=== PATIENT | female | born 1980 | race Caucasian/White ===

== ENCOUNTER 2024-04-18 08:49 | Emergency (ER) | payer OTHER, SELFPAY ==
[2024-04-18 09:08] VITALS: BP 141/113; PULSE 81; RESP 16; TEMP 37; O2SAT 100
--- NOTE | 2024-04-18 10:19 | ED.GENADULT ---
HPI - General Adult General Chief complaint: Neck Pain/Injury Stated complaint: neck pain, left arm pain Time Seen by Provider: 04/18/24 09:52 History of Present Illness HPI narrative: Patient is a 43-year-old female who presents to the emergency department this morning with multiple chronic complaints. Patient states that she has had neck pain for the past few months and when she lived in [place] a few months ago in January had an MRI of her neck which revealed severe cervical spondylosis. Patient was seen at an outside facility here a week ago and had repeat CT scans which showed similar findings. At that time, patient was referred to a neurosurgeon which wanted to try steroid shots 1st before surgery, however, patient declined a steroid shots as they would not put her under. Patient was administered some Ativan which the patient stated did not do anything for her anxiety. Patient states that she has PTSD and the injections only precipitate that. She was discharged and was not provided with appropriate follow-up since she refused the steroid shots. Patient is now frustrated and she said while she was at this outside hospital they were checking her blood work every 2 hours since she was septic and accidentally injured 1 of her left upper extremity nerves in the AC fossa. Patient states that since then she has been having this sharp shooting nerve pain and is requesting medication for her nerve pain. Patient is allergic to gabapentin. She is also requesting a neurosurgeon/field artillery operations specialist referral. She denies any recent trauma or falls since she was discharged from outside hospital. Patient has no additional concerns or symptoms at this time. Related Data Allergies Allergy/AdvReac Type Severity Reaction Status Date / Time codeine Allergy Rash Verified 04/18/24 09:17 gabapentin Allergy Rash Verified 04/18/24 09:17 Sulfa (Sulfonamide Allergy Anaphylaxis Verified 04/18/24 09:17 Antibiotics) Review of Systems Review of Systems: All systems are reviewed and are negative unless stated otherwise in the HPI. Exam Narrative: General: Alert, awake, afebrile, in no acute distress. HEENT: PERRL, no rhinorrhea, no post nasal drip, oropharynx clear. Neck: Tenderness to palpation over the paraspinal cervical muscles. Cardiovascular: Regular rate and rhythm, no murmurs, rubs or gallops, no peripheral edema. Respiratory: Clear to auscultation bilaterally, no tachypnea, no wheezing, no rhonchi, no rubs, no respiratory distress. Abdomen: Soft, nontender, nondistended, no rebound, no guarding, no peritoneal signs. Musculoskeletal: No joint swelling or deformity, normal muscle tone. Skin: No rashes or petechia, no signs of infection. Neurological: Alert and oriented to person, place, and time. Follows all commands. No focal deficits, speech is clear and fluent. Course Vital Signs Vital signs: Vital Signs Temperature 98.6 F 04/18/24 09:08 Pulse Rate 81 04/18/24 09:08 Respiratory Rate 16 04/18/24 09:08 Blood Pressure 141/113 H 04/18/24 09:08 Pulse Oximetry 100 04/18/24 09:08 Oxygen Delivery Room Air 04/18/24 09:08 Temperature 98.6 F 04/18/24 09:08 Pulse Rate 81 04/18/24 09:08 Respiratory Rate 16 04/18/24 09:08 Blood Pressure 141/113 H 04/18/24 09:08 Pulse Oximetry 100 04/18/24 09:08 Oxygen Delivery Room Air 04/18/24 09:08 Medical Decision Making MDM Narrative Medical decision making narrative: The patient was evaluated by myself in the emergency department. History is obtained from patient who is an independent historian and physical exam was performed. External medical records were reviewed at this time. Patient is already prescribed multiple pain medications including tramadol and Dilaudid to use as needed for her neck pain and she admits that these are controlling her pain, however, she is frustrated due to her being discharged without appropriate follow-up. Patient also states that
[2024-04-18 11:22] VITALS: BP 140/69; PULSE 80; RESP 15; TEMP 36.9; O2SAT 97
--- NOTE | 2024-04-18 18:50 | PCCCNOTE ---
CC called to come speak with pt regarding her living situation. Pt came from [place] with a male friend four days ago. She is not happy with the arrangements with him. She would like to go back to [place]. Pt given senior living resources along with food, housing, and the community packet. She verbalized that was what she needed. No further needs at this time.
== END 2024-04-18 11:26 | disposition home or self-care (01) ==
LOC: ANHED 10:26
PROVIDERS: Emergency Provider Emergency Medicine
DX: M47.812 Spondylosis without myelopathy or radiculopathy, cervical region (principal); G98.8 Other disorders of nervous system
CPT/HCPCS: 99283